=== PATIENT | male | born 1975 | race Caucasian/White ===

== ENCOUNTER 2021-08-23 06:02 | Day surgery (SDC) | payer OTHER ==
[2021-08-23] MEDS ORDERED: Lactated Ringers 1,000 ML IV SCH (06:30)
[2021-08-23] MEDS ORDERED: Propofol 200 MG/20 ML SDV ONE ×2 (06:47→07:46)
[2021-08-23] MEDS ORDERED: fentaNYL 100 MCG/2 ML SDV ONE (06:48)
[2021-08-23] MEDS ORDERED: Midazolam 1 MG/ML 2 ML SDV ONE (06:48)
[2021-08-23 08:49] VITALS: BP 120/67; PULSE 55
== END 2021-08-23 08:56 | disposition home or self-care (01) ==
LOC: JP.SDS 06:02
PROVIDERS: ATTEND Internal Medicine
DX: K63.5 Polyp of colon (principal); K62.4 Stenosis of anus and rectum; I10 Essential (primary) hypertension; J45.909 Unspecified asthma, uncomplicated; Z20.822 Contact with and (suspected) exposure to COVID-19; Z01.812 Encounter for preprocedural laboratory examination
CPT/HCPCS: 45380; 87635; 88305; J2250; J2704; J3010; J7120; U0002